=== PATIENT | male | born 1965 | race Caucasian/White ===

== ENCOUNTER 2018-08-03 21:25 | Emergency (ER) | payer OTHER, SELFPAY ==
[2018-08-03 21:27] VITALS: BP 166/105; PULSE 77; RESP 21; TEMP 37; O2SAT 96; BMI 35.4
[2018-08-03 21:30] VITALS: BP 172/102; PULSE 79; RESP 16; O2SAT 91
--- NOTE | 2018-08-03 21:34 | ED.CHESTPAIN ---
HPI - Chest Pain General Chief Complaint: Arrhythmia/Palpitations Stated Complaint: Heart problem Time Seen by Provider: 08/03/18 21:34 Source: patient Mode of arrival: ambulatory Limitations: no limitations History of Present Illness HPI narrative: Patient is a 53-year-old male otherwise healthy here for evaluation of palpitations and feel like his heart is racing. He states that this morning he was at his normal state health. Walking around the mall down in [place] when he stated that he felt like his heart suddenly started to be fast. He denies any chest pain or lightheadedness or shortness of breath at that time. He states that throughout the day he did feel like there were times when his heart was beating very fast and also times when his heart was beating normal. He came home and took his blood pressure and it was elevated. No prior history of atrial fibrillation. Related Data Previous Rx's Medication Instructions Recorded rivaroxaban [Xarelto] 15 mg PO DAILY #14 tab 08/03/18 Review of Systems Constitutional Denies fever(s) and Denies headache(s) ENT Ears, Nose, Mouth, and Throat: Denies headache(s) Cardiovascular Denies chest pain, Denies chest pain with activity, Reports rapid heart rate, Denies leg edema, Denies lightheadedness, Reports palpitations and Denies dyspnea Respiratory Denies dyspnea, Denies stridor and Denies wheezing Gastrointestinal Gastrointestinal: Denies abdominal pain, Denies nausea and Denies vomiting Musculoskeletal Denies myalgias and Denies arthralgias Integumentary/Breasts Denies lesions and Denies rash Neurologic Denies headache(s) Endocrine Reports palpitations Hematologic/Lymphatic Comments: Not on anticoagulation Allergic/Immunologic Denies wheezing [facility] Medical History Healthy adult (Acute) Surgical History No pertinent past surgical history (Acute) Social History Smoking Status: Current every day smoker Exam Initial Vital Signs Initial Vital Signs: Vital Signs Temperature 98.6 F 08/03/18 21:27 Pulse Rate 77 08/03/18 21:27 Respiratory Rate 21 08/03/18 21:27 Blood Pressure 166/105 H 08/03/18 21:27 Pulse Oximetry 96 08/03/18 21:27 Const General: cooperative, healthy appearing, comfortable, well developed, well groomed and No acute distress Orientation: alert, awake and oriented x3 HENMT Head: normal to inspection and normocephalic Resp Effort & Inspection: normal respiratory effort Auscultation: clear to auscultation bilaterally Cardio Rate: regular rate Rhythm: abnormal rhythm irregularly irregular Heart Sounds: no murmurs Pulses: radial pulses present GI Inspection: non-distended Palpation: soft and No firm Skin Lesions: no lesions Rashes: no rashes Neuro General: alert, awake and oriented x3 Extrem General: normal to inspection and capillary refill normal Psych Appearance: grossly normal and well kempt Scores CHADS-VASc Congestive heart failure: no Hypertension: yes Age 75 years or older: no Diabetes mellitus: no Stroke, TIA, or TE: no Vascular disease: no Age 65 to 74 years: no Sex category (female): Male CHADS-VASc Score: 1 Course Orders Ordered: ED Orders 08/03/18 21:37 XR chest 1V Stat B Type Natriuretic Peptide Stat Complete Blood Count AUTO DIFF Stat Comprehensive Metabolic Panel Stat Partial Thromboplastin Time Stat Prothrombin Time INR Stat Troponin I Stat EKG-12 Lead Stat 08/03/18 22:13 EKG-12 Lead Stat Discontinued Medications Rivaroxaban (Xarelto) 15 mg PO NOW ONE Stop: 08/03/18 23:14 Last Admin: 08/03/18 23:21 Dose: 15 mg Vital Signs - 8 hr 08/03/18 21:27 08/03/18 21:30 08/03/18 22:25 Temperature 98.6 F Pulse Rate 77 79 77 Respiratory Rate 21 16 21 Blood Pressure 166/105 H Blood Pressure [Left Arm] 172/102 H 125/75 Pulse Oximetry 96 91 96 08/03/18 22:30 08/03/18 23:02 08/03/18 23:50 Temperature Pulse Rate 96 H 91 H 86 Respiratory Rate 13 20 17 Blood Pressure 124/90 Blood Pressure [Left Arm] 127/88 146/95 H Pulse Oximetry 96 97 95 MDM - Chest Pain Lab Data Attestation: I reviewed the patient's lab results. Result diagrams: 08/03/18 21:37 08/03/18 21:37 Lab Results 08/03/18 08/03/18 08/03/18 Range/Units 21:37 21:37 21:37 WBC 10.2 (4.5-11.0) X10^3/uL RBC 5.23 (4.5-5.9) X10^6/uL Hgb 15.5 (13.5-17.5) g/dL Hct 46.2 (41-53) % MCV 88.3 (80-100) fL MCH 29.7 (26-34) PG MCHC 33.6 (30-36) % RDW 13.9 (11.6-14.8) % Plt Count 200 (150-400) X10^3/uL Neut % (Auto) 52.5 (50-75) % Lymph % (Auto) 35.2 (25-40) % [place] % (Auto) 8.1 (3-14) % Eos % (Auto) 2.9 (2-4) % Baso % (Auto) 1.3 (0-2) % Neut # (Auto) 5300 (0822-0170) /uL Lymph # (Auto) 3600 (9610-6458) /uL [place] # (Auto) 800 (0-900) /uL Eos # (Auto) 300 (0-450) /uL Baso # (Auto) 100 (0-100) /uL PT 12.0 (10.1-12.7) SECONDS INR 1.0 (0.9-1.3) APTT 32 (26.4-36.2) SECONDS Sodium 143 (137-145) mmol/L Potassium 3.6 (3.4-5.1) mmol/L Chloride 101 (98-107) mmol/L Carbon Dioxide 32 (22-32) mmol/L BUN 16 (9-20) mg/dL Creatinine 1.10 (0.66-1.25) mg/dL Estimated GFR > 60.0 (>60) mL/min BUN/Creatinine Ratio 14.5 (6-22) Glucose 193 H (70-100) mg/dL Calcium 9.6 (8.4-10.2) mg/dL Total Bilirubin 0.5 (0.2-1.3) mg/dL AST 44 (17-59) IU/L ALT 75 H (21-72) IU/L Alkaline Phosphatase 65 (38-126) U/L Troponin I 0.013 (0.01-0.034) ng/mL B-Natriuretic Peptide < 100 (<100) Total Protein 8.1 (6.3-8.2) g/dL Albumin 4.5 (3.5-5.0) g/dL Globulin 3.6 (1.7-4.1) g/dL Albumin/Globulin Ratio 1.3 (1.0-2.8) Imaging Data Chest x-ray: Radiologist's impression: PROCEDURE: XR CHEST 1V INDICATIONS: palpitations TECHNIQUE: One view of the chest was acquired. COMPARISON: None. FINDINGS: Surgical changes and devices: None. Lungs and pleura: No pleural effusions or pneumothorax. Lungs are clear. Mediastinum: Mediastinal contours appear normal. Heart size is normal. Bones and chest wall: No suspicious bony lesions. Overlying soft tissues appear unremarkable. IMPRESSION: No acute pulmonary process. Dictated by: Shelby Corona M.D. on 08/03/2018 at 21:58 Approved by: Shelby Corona M.D. on 08/03/2018 at 21:58 ECG Data Attestation: I personally reviewed and interpreted this ECG as follows: Prior ECG tracings: not available for review Interpretation: EKG 03 August 2018 time 2131 hr Atrial fibrillation Ventricular rate of 114 Normal QRS Normal axis No ST T wave changes EKG 03 August 2018 time 2219 hr Atrial fibrillation Ventricular rate 89 Normal axis Normal QRS Nonspecific ST T wave changes MDM Narrative Medical decision making narrative: Patient without a history of atrial fibrillation arrived in atrial fibrillation with a heart rate greater than 100. He was not hypotensive. Other than the palpitations had no other symptoms. Chest x-ray is unremarkable. Labs are unremarkable. It does sound like his symptoms started within the past 12 hr. Had a long discussion with the patient and his who is at bedside regarding atrial fibrillation. We did discuss treatment options to include rhythm control with sedation and cardioversion here in the emergency department. Patient arrived tachycardic however after period of time here in the emergency department his heart rate was consistently below 100 however still in AFib. We did discuss that there is the potential that he would convert back to sinus rhythm on his own within the next several days. Did inform him that if this did not happen there to be high likelihood that he would need a cardioversion as an outpatient in the future. We did discuss the risks of being in atrial fibrillation to include strokes. After that discussion to include the risks and benefits of cardioversion and also waiting the patient opted to not be cardioverted. Informed him that we should start him on anticoagulation. He was given the 1st dose of Xarelto here in the emergency department a prescription for this. The patient also is on metoprolol. He takes 50 mg 2 times a day. Will increase this to 100 mg 2 times a day. He was instructed he needed to contact his primary care doctor tomorrow for follow-up and to discuss a referral to see cardiology. He was also given return precautions to include chest pain, lightheadedness or feeling like that his heart was racing it did not resolve on its own. Patient expressed understanding and agreement with plan. Discharge Plan Departure Patient Disposition: Home Clinical Impression: Atrial fibrillation Discharge Date/Time: 08/03/18 23:51 Interventions: ED Discharge Assessment Last Done: 08/03/18 23:50 Instructions: DI for Atrial Fibrillation Activity Restrictions/Additional Instructions: I would recommend that you take 100 mg of the metoprolol 2 times a day. You can use your prescription that you already have. I also recommend that you start taking the anticoagulant as directed. Tomorrow you need to contact your primary care doctor to establish a follow-up. Return to the emergency department for any new symptoms, chest pain, problems breathing, or any other concerning symptoms. Prescriptions: New rivaroxaban [Xarelto] 15 mg tablet 15 mg PO DAILY Qty: 14 RF: 0
--- NOTE | 2018-08-03 21:37 | DI.RAD.S_ITS ---
PROCEDURE: XR CHEST 1V INDICATIONS: palpitations TECHNIQUE: One view of the chest was acquired. COMPARISON: None. FINDINGS: Surgical changes and devices: None. Lungs and pleura: No pleural effusions or pneumothorax. Lungs are clear. Mediastinum: Mediastinal contours appear normal. Heart size is normal. Bones and chest wall: No suspicious bony lesions. Overlying soft tissues appear unremarkable. IMPRESSION: No acute pulmonary process. Dictated by: Shelby Corona M.D. on 08/03/2018 at 21:58 Approved by: Shelby Corona M.D. on 08/03/2018 at 21:58
[2018-08-03 21:51] LABS: Add Manual Diff / Slide Review NO; Basophils Absolute Auto 100 /uL (0-100); Basophils Percent Auto 1.3 % (0-2); Eosinophils Absolute Auto 300 /uL (0-450); Eosinophils Percent Auto 2.9 % (2-4); Hematocrit 46.2 % (41-53); Hemoglobin 15.5 g/dL (13.5-17.5); Lymphocytes Absolute Auto 3600 /uL (1100-4500); Lymphocytes Percent Auto 35.2 % (25-40); Mean Corpuscular HGB Conc 33.6 % (30-36); Mean Corpuscular Hemoglobin 29.7 PG (26-34); Mean Corpuscular Volume 88.3 fL (80-100); Monocytes Absolute Auto 800 /uL (0-900); Monocytes Percent Auto 8.1 % (3-14); Neutrophils Absolute Auto 5300 /uL (1500-7000); Neutrophils Percent Auto 52.5 % (50-75); Platelet Count 200 X10^3/uL (150-400); Red Blood Cell Count 5.23 X10^6/uL (4.5-5.9); Red Cell Distribution Width 13.9 % (11.6-14.8); White Blood Cell Count 10.2 X10^3/uL (4.5-11.0)
[2018-08-03 22:03] LABS: PTT Partial Thromboplastin Tim 32 SECONDS (26.4-36.2)
[2018-08-03 22:06] LABS: Alanine Aminotransferase 75 IU/L (21-72); Albumin 4.5 g/dL (3.5-5.0); Albumin Globulin Ratio 1.3 (1.0-2.8); Alkaline Phosphatase 65 U/L (38-126); Aspartate Aminotransferase 44 IU/L (17-59); BUN Creatinine Ratio 14.5 (6-22); Bilirubin Total 0.5 mg/dL (0.2-1.3); Blood Urea Nitrogen 16 mg/dL (9-20); Calcium 9.6 mg/dL (8.4-10.2); Carbon Dioxide 32 mmol/L (22-32); Chloride 101 mmol/L (98-107); Estimated Glomerular Filt Rate > 60.0 mL/min (>60); Globulin 3.6 g/dL (1.7-4.1); Glucose 193 mg/dL (70-100); HEMOLYSIS 24 (0-50); Potassium 3.6 mmol/L (3.4-5.1); Sodium 143 mmol/L (137-145); Total Protein 8.1 g/dL (6.3-8.2)
[2018-08-03 22:16] LABS: Troponin I 0.013 ng/mL (0.01-0.034)
[2018-08-03 22:25] VITALS: BP 125/75; PULSE 77; RESP 21; O2SAT 96
[2018-08-03 22:30] VITALS: BP 127/88; PULSE 96; RESP 13; O2SAT 96
[2018-08-03 22:46] LABS: B Type Natriuretic Peptide < 100 (<100)
[2018-08-03 23:02] VITALS: BP 146/95; PULSE 91; RESP 20; O2SAT 97
[2018-08-03] MEDS: RIVAROXABAN 10 MG TABLET 15 MG PO (23:21)
[2018-08-03 23:50] VITALS: BP 124/90; PULSE 86; RESP 17; O2SAT 95
== END 2018-08-03 23:51 | disposition home or self-care (01) ==
PROVIDERS: Emergency Provider Emergency Medicine
DX: I48.91 Unspecified atrial fibrillation (principal)
CPT/HCPCS: 36591; 71045; 80053; 83880; 84484; 85025; 85610; 85730; 93005; 93010; 99283; 99285

== ENCOUNTER 2021-02-05 10:26 | Emergency (ER) | payer OTHER, SELFPAY ==
[2021-02-05 10:44] VITALS: BP 150/87; PULSE 58; RESP 14; TEMP 35.9; O2SAT 98
[2021-02-05] MEDS: ACETAMINOPHEN 325 MG TABLET 975 MG PO (10:52)
--- NOTE | 2021-02-05 12:36 | PC.NURSE ---
Patient felt a POP while stretching in right scapula, neck. Increase tightness and stiffness. Tender to palpation along right scapula. Able to raise arms up but causes increase pain in shoulder blade and neck.
--- NOTE | 2021-02-05 13:21 | ED.BACK ---
HPI - Back Pain/Injury General Chief Complaint: Back Pain/Injury Stated Complaint: hurt back Time Seen by Provider: 02/05/21 13:05 Source: patient Limitations: no limitations History of Present Illness HPI Narrative: Patient is a 55-year-old male history of atrial fibrillation on Xarelto presenting with right-sided chest and back pain. He said he was stretching with his arms above his head when he instantly felt pain rib down his chest and his back. It hurts with very little movement. There is no bruising. He denies any numbness tingling or weakness in his hand although he did have some when he was trying to fall sleep last night but it is is not persistent. No fevers chills no chest pain he is not dizzy or lightheaded. Related Data Previous Rx's Medication Instructions Recorded rivaroxaban 15 mg tablet (Xarelto) 15 mg PO DAILY #14 tab 08/03/18 hydrocodone 5 mg-acetaminophen 325 1 tab PO Q6H PRN #10 tab 02/05/21 mg tablet Allergies Allergy/AdvReac Type Severity Reaction Status Date / Time No Known Drug Allergies Allergy Verified 02/05/21 10:48 Review of Systems Review of Systems Narrative: GENERAL: Denies chills, fatigue, malaise, fever, sweats, travel HEENT: Denies sinus pain, ear pain, sore throat, difficulty swallowing, neck pain RESPIRATORY: Denies dyspnea, cough, wheezing, hemoptysis, sputum. CARDIOVASCULAR: Right-sided chest pain, see HPI Denies chest pain, palpitations, orthopnea, edema GASTROINTESTINAL: Denies nausea, vomiting, abdominal pain, diarrhea, constipation, melena. : Denies dysuria, frequency, incontinence, hematuria, urinary retention, flank pain. MUSCULOSKELETAL: See HPI SKIN: No rash, no erythema, no pruritus NEUROLOGIC: Denies weakness, dizziness, headache, numbness, change in speech, confusion PSYCHIATRIC: No concerning psychosocial issues. 12 point review of systems is negative except for those stated above and HPI Patient History Medical History Atrial fibrillation Healthy adult Surgical History No pertinent past surgical history Social History Smoking Status: Never smoker Smoking Status: Never smoker alcohol intake frequency: a few times a month Substance Use Type: does not use Exam Initial Vital Signs Initial Vital Signs: Vital Signs Temperature 96.6 F L 02/05/21 10:44 Pulse Rate 58 L 02/05/21 10:44 Respiratory Rate 14 02/05/21 10:44 Blood Pressure 150/87 H 02/05/21 10:44 Pulse Oximetry 98 02/05/21 10:44 GENERAL: Alert nice well-appearing 55-year-old male and in no acute distress. HEENT: Head atraumatic,EOMI, pupils reactive, face symmetric, moist mucous membranes CARDIOVASCULAR: Regular rate and rhythm without murmurs, rubs or gallops. Right-sided chest pain tender to palpation worse with arm movement contusion RESPIRATORY: Breath sounds equal bilaterally, no wheezes rales or rhonchi. ABDOMEN: Soft, nontender. Normoactive bowel sounds all 4 quadrants. No guarding or rebound. EXTREMITIES: Normal range of motion, no clubbing or edema. Neurovascularly intact NEUROLOGICAL: Alert and oriented x4.Normal gait and speech. SKIN: Warm, dry, no laceration, no petechiae, no rashes or lesions. Course Orders Ordered: Discontinued Medications Acetaminophen (Acetaminophen 325 Mg Tablet) 975 mg PO NOW ONE Stop: 02/05/21 10:50 Last Admin: 02/05/21 10:52 Dose: 975 mg Documented by: BAILEY Vital Signs Vital signs: Vital Signs - 8 hr 02/05/21 10:44 Temperature 96.6 F L Pulse Rate 58 L Respiratory Rate 14 Blood Pressure 150/87 H Pulse Oximetry 98 MDM - Back Pain/Injury MDM Narrative Medical decision making narrative: This seems to be a musculoskeletal issue level strained pectoralis muscle. Pain is not really any better after Tylenol. On Xarelto cannot take NSAIDs. Will give him some hydrocodone. Discharge Plan Departure Patient Disposition: Home Clinical Impression: Pectoralis muscle strain Qualifiers: Encounter type: initial encounter Qualified Code(s): S29.011A - Strain of muscle and tendon of front wall of thorax, initial encounter Instructions: DI for Muscle Strain Activity Restrictions/Additional Instructions: *You have been diagnosed with right sided the pectoralis strain *What to do: Recommend all ice rest this can take up to a couple of weeks to heal *Continue to take medications as directed-->SENT TO [facility] [place] Hydrocodone 1-2 tablets every 6 hours if needed for severe pain (this contains 325 mg of Tylenol, do not exceed more than 4000 mg of Tylenol in 24 hours or 1000 mg at 1 time) *Follow up with your primary care provider in 2-3 days *Return to ER if you should have increasing pain, shortness of breath or any new, worsening or concerning symptoms Prescriptions: New hydrocodone-acetaminophen 5-325 mg tablet 1 tab PO Q6H PRN (Reason: pain) Qty: 10 RF: 0 No Action Xarelto 15 mg tablet 15 mg PO DAILY Qty: 14 RF: 0
== END 2021-02-05 13:52 | disposition home or self-care (01) ==
PROVIDERS: Emergency Provider Emergency Medicine
DX: S29.011A Strain of muscle and tendon of front wall of thorax, initial encounter (principal)
CPT/HCPCS: 99282; 99283